=== PATIENT | male | born 1965 | race Caucasian/White ===

== ENCOUNTER 2019-03-15 19:54 | Emergency (ER) | payer OTHER ==
[~2019-03-15] VITALS: Ht 172.7 cm; Wt 97.1 kg
[2019-03-15 19:55] VITALS: Ht 172.7 cm; Wt 97.1 kg
[2019-03-15 22:40] VITALS: BP 165/68
== END 2019-03-15 22:40 | disposition home or self-care (01) ==
LOC: ED 19:54
DX: H10.213 Acute toxic conjunctivitis, bilateral (principal); E11.9 Type 2 diabetes mellitus without complications; T50.905A Adverse effect of unspecified drugs, medicaments and biological substances, initial encounter; Y92.89 Other specified places as the place of occurrence of the external cause
CPT/HCPCS: J2270; J3010; J7030; V2632